=== PATIENT | male | born 1950 | race Caucasian/White ===

== ENCOUNTER 2021-05-12 08:19 | Day surgery (SDC) | payer MEDICARE, OTHER ==
[~2021-05-12] VITALS: Ht 172.7 cm; Wt 115.5 kg
[2021-05-12] VITALS (10 sets, daily range): BP systolic 104–154; BP diastolic 55–89
[2021-05-12] MEDS ORDERED: diphenhydrAMINE 25mg capsule PO PRN (08:55)
[2021-05-12] MEDS ORDERED: normal saline 1,000 ML IV SCH ×2 (08:55→13:25)
[2021-05-12] MEDS ORDERED: BACL10TA2 PO (09:23)
[2021-05-12] MEDS ORDERED: LISI40TA13 PO (09:23)
[2021-05-12] MEDS ORDERED: ALLO100T PO (09:23)
[2021-05-12] MEDS ORDERED: AMLO10TA13 PO (09:23)
[2021-05-12] MEDS ORDERED: ATOR40TA72 PO (09:23)
[2021-05-12] MEDS ORDERED: ROPI0.2540 PO (09:23)
[2021-05-12] MEDS ORDERED: METO50TA16 PO (09:23)
[2021-05-12] MEDS ORDERED: LACT1CAP57 PO (09:36)
[2021-05-12] MEDS ORDERED: MULT-1085 PO (09:36)
[2021-05-12] MEDS ORDERED: ASPI81TA30 PO (09:36)
[2021-05-12] MEDS ORDERED: IRON (09:36)
[2021-05-12] MEDS ORDERED: OMEG1CAP2 PO (09:36)
[2021-05-12] MEDS ORDERED: UBID10CA4 PO (09:36)
[2021-05-12] MEDS ORDERED: VITAMIN D3 (09:36)
[2021-05-12] MEDS ORDERED: VITA1TAB20 PO (09:36)
[2021-05-12 10:32] LABS: BASOPHILS % (AUTO) 0.6 % (0-1); EOSINOPHILS # (AUTO) 0.1 X10'3 (0-0.9); EOSINOPHILS % (AUTO) 1.5 % (0-6); HEMOGLOBIN 14.4 g/dl (14.0-17.9); LYMPHOCYTES # (AUTO) 1.5 X10'3 (1.1-4.8); LYMPHOCYTES % (AUTO) 19.1 % (21-51); MEAN CORPUSCULAR HEMOGLOBIN 32.8 PG (27.0-31.0); MEAN CORPUSCULAR HGB CONC 33.5 g/dL (33.0-36.5); MEAN CORPUSCULAR VOLUME 97.9 FL (78-98); MEAN PLATELET VOLUME 7.6 FL (7.4-10.4); MONOCYTES # (AUTO) 0.5 X10'3 (0-0.9); MONOCYTES % (AUTO) 6.9 % (2-12); NEUTROPHILS # (AUTO) 5.7 X10'3 (1.8-7.7); NEUTROPHILS % (AUTO) 71.9 % (42-75); PLATELET COUNT 237 X10'3 (140-440); RED BLOOD COUNT 4.39 X10'6 (4.70-6.10); RED CELL DISTRIBUTION WIDTH 14.7 % (11.5-14.5); WHITE BLOOD COUNT 7.9 X10'3 (4.5-11.0)
[2021-05-12] MEDS ORDERED: nitroGLYCERIN-Tridil 50MG/D5W 250 ML IV ONE (10:42)
[2021-05-12] MEDS ORDERED: iohexol 350MG/ML 100ml bottle IV ONE ×3 (10:43→12:37)
[2021-05-12] MEDS ORDERED: fentaNYL/PF 50MCG/1 ML 2ML syringe ONE (10:43)
[2021-05-12] MEDS ORDERED: iohexol 350 MG/ML 50ML vial IV ONE (10:43)
[2021-05-12] MEDS ORDERED: midazolam 1 mg/ML 2ml injection ONE ×2 (10:43→11:16)
[2021-05-12] MEDS ORDERED: LIDOcaine 1% (10mg/ml)w/preservative injection 20ml MDV ONE (10:43)
[2021-05-12] MEDS ORDERED: heparin 1,000unit/ml 10ml vial 10 ML ONE (10:43)
[2021-05-12 10:54] LABS: ALBUMIN 3.8 G/DL (3.4-5.0); ANION GAP 14 (8-16); BLOOD UREA NITROGEN 17 MG/DL (7-18); BUN/CREATININE RATIO 12.3 (5.4-32.0); CALCIUM 9.2 MG/DL (8.5-10.1); CHLORIDE 104 MMOL/L (99-107); CREATININE 1.38 MG/DL (0.60-1.10); GLUCOSE 119 MG/DL (70-104); MAGNESIUM 1.8 MG/DL (1.5-2.4); POTASSIUM 4.4 MMOL/L (3.5-5.1); SODIUM 141 MMOL/L (135-145); TOTAL CARBON DIOXIDE 22.7 MMOL/L (24-32); eGFR 51 ML/MIN
[2021-05-12] MEDS ORDERED: HYDROmorphone 1 mg/ml syringe ONE (11:27)
[2021-05-12] MEDS ORDERED: verapamil 2.5 mg/ml inj IV ONE (11:28)
[2021-05-12] MEDS ORDERED: proCHLORperazine 10 MG/2 ml inj IV PRN (13:25)
[2021-05-12] MEDS ORDERED: OXAZEpam 15mg capsule PO PRN (13:25)
[2021-05-12] MEDS ORDERED: HYDROcodone/acetaminophen 10/325mg tab PO PRN (13:25)
[2021-05-12] MEDS ORDERED: HYDROcodone/acetaminophen 5mg/325mg tablet PO PRN (13:25)
[2021-05-12] MEDS ORDERED: ondansetron/PF 4mg/2ml inj IV PRN (13:25)
== END 2021-05-12 17:15 | disposition home or self-care (01) ==
LOC: SSTAY O 08:19
PROVIDERS: ATTEND Internal Medicine Cardiovascular Disease
DX: I35.0 Nonrheumatic aortic (valve) stenosis (principal); I25.810 Atherosclerosis of coronary artery bypass graft(s) without angina pectoris; I44.7 Left bundle-branch block, unspecified; I48.0 Paroxysmal atrial fibrillation; I10 Essential (primary) hypertension; E78.5 Hyperlipidemia, unspecified; E21.3 Hyperparathyroidism, unspecified; G25.81 Restless legs syndrome; E66.9 Obesity, unspecified; Z68.39 Body mass index [BMI] 39.0-39.9, adult; Z90.49 Acquired absence of other specified parts of digestive tract; Z79.899 Other long term (current) drug therapy; Z86.73 Personal history of transient ischemic attack (TIA), and cerebral infarction without residual deficits; Z79.82 Long term (current) use of aspirin; Z87.442 Personal history of urinary calculi; Z93.2 Ileostomy status; Z93.3 Colostomy status; Z98.49 Cataract extraction status, unspecified eye; Z88.0 Allergy status to penicillin; Z88.8 Allergy status to other drugs, medicaments and biological substances; Z82.49 Family history of ischemic heart disease and other diseases of the circulatory system
CPT/HCPCS: 36415; 80048; 83735; 85025; 85610; 93005; 93455; 99152; 99153; C1769; C1894; J1170; J1644; J2001; J2250; J3010; J7030; Q0163; Q9967; A4620; A5120; A6258; C1751; J3490

== ENCOUNTER 2021-06-24 10:56 | Outpatient (CLI) | payer MEDICARE, OTHER ==
[~2021-06-24 10:56] MED LIST: ALLO100T PO; AMLO10TA13 PO; ASPI81TA30 PO; ATOR40TA72 PO; BACL10TA2 PO; IRON; LACT1CAP57 PO; LISI40TA13 PO; METO50TA16 PO; MULT-1085 PO; OMEG1CAP2 PO; ROPI0.2540 PO; UBID10CA4 PO; VITA1TAB20 PO; VITAMIN D3
[2021-06-24] MEDS ORDERED: IODIXANOL 320 MG/ML INFUS..BTL 50ML IV ONE (11:46)
[2021-06-24] MEDS ORDERED: IODIXANOL 320 MG/ML INFUS..BTL 100ML IV ONE (11:46)
[2021-06-24 11:51] LABS: BASOPHILS # (AUTO) 0.1 X10'3 (0-0.2); BASOPHILS % (AUTO) 0.8 % (0-1); EOSINOPHILS # (AUTO) 0.6 X10'3 (0-0.9); EOSINOPHILS % (AUTO) 6.8 % (0-6); HEMATOCRIT 43.6 % (42.0-52.0); HEMOGLOBIN 14.7 g/dl (14.0-17.9); LYMPHOCYTES # (AUTO) 2.4 X10'3 (1.1-4.8); LYMPHOCYTES % (AUTO) 29.1 % (21-51); MEAN CORPUSCULAR HEMOGLOBIN 32.6 PG (27.0-31.0); MEAN CORPUSCULAR HGB CONC 33.8 g/dL (33.0-36.5); MEAN CORPUSCULAR VOLUME 96.6 FL (78-98); MEAN PLATELET VOLUME 7.6 FL (7.4-10.4); MONOCYTES # (AUTO) 0.5 X10'3 (0-0.9); MONOCYTES % (AUTO) 6.2 % (2-12); NEUTROPHILS # (AUTO) 4.7 X10'3 (1.8-7.7); NEUTROPHILS % (AUTO) 57.1 % (42-75); PLATELET COUNT 238 X10'3 (140-440); RED BLOOD COUNT 4.52 X10'6 (4.70-6.10); RED CELL DISTRIBUTION WIDTH 14.7 % (11.5-14.5); WHITE BLOOD COUNT 8.2 X10'3 (4.5-11.0)
[2021-06-24 12:03] LABS: PARTIAL THROMBOPLASTIN TIME 27 SECONDS (22-32)
[2021-06-24 12:07] LABS: ALANINE AMINOTRANSFERASE 29 U/L (12-78); ALBUMIN 3.5 G/DL (3.4-5.0); ALBUMIN/GLOBULIN RATIO 0.8 (1.1-1.5); ALKALINE PHOSPHATASE 67 IU/L (46-116); ANION GAP 13 (8-16); ASPARTATE AMINO TRANSFERASE 24 U/L (10-37); BILIRUBIN,TOTAL 1.3 MG/DL (0.1-1.0); BLOOD UREA NITROGEN 13 MG/DL (7-18); BUN/CREATININE RATIO 10.6 (5.4-32.0); CALCIUM 8.7 MG/DL (8.5-10.1); CHLORIDE 107 MMOL/L (99-107); CREATININE 1.23 MG/DL (0.60-1.10); GLUCOSE 123 MG/DL (70-104); POTASSIUM 4.4 MMOL/L (3.5-5.1); SODIUM 142 MMOL/L (135-145); TOTAL CARBON DIOXIDE 22.5 MMOL/L (24-32); eGFR 58 ML/MIN
== END 2021-06-24 23:59 | disposition home or self-care (01) ==
LOC: RAD 10:56
PROVIDERS: ATTEND Internal Medicine Cardiovascular Disease
DX: I71.4 Abdominal aortic aneurysm, without rupture (principal); K43.9 Ventral hernia without obstruction or gangrene; K43.5 Parastomal hernia without obstruction or gangrene; N28.1 Cyst of kidney, acquired; I70.0 Atherosclerosis of aorta; I65.23 Occlusion and stenosis of bilateral carotid arteries; I08.0 Rheumatic disorders of both mitral and aortic valves; Z20.822 Contact with and (suspected) exposure to COVID-19
CPT/HCPCS: 36415; 71046; 71275; 74174; 76937; 80053; 85025; 85610; 85730; 93308; 93880; Q9967; U0003; U0005

== ENCOUNTER → 2021-06-27 | Outpatient (CLI) | payer MEDICARE, OTHER | END | disposition home or self-care (01) | LOC: RT 12:29 | PROVIDERS: ATTEND Internal Medicine Cardiovascular Disease | DX: I35.0 Nonrheumatic aortic (valve) stenosis (principal); R06.02 Shortness of breath; I65.29 Occlusion and stenosis of unspecified carotid artery | CPT/HCPCS: 94010; 94727; 94729 ==

== ENCOUNTER 2021-08-28 09:30 | Inpatient (IN) | payer MEDICARE, OTHER ==
[~2021-08-28] VITALS: Ht 172.7 cm; Wt 107.3 kg
[~2021-08-28 09:30] MED LIST changes: -IRON; -LACT1CAP57 PO; -MULT-1085 PO; -OMEG1CAP2 PO; -UBID10CA4 PO; -VITAMIN D3
[2021-09-12 12:14] LABS: CLARITY,URINE CLEAR (Clear); COLOR,URINE YELLOW (Yellow); UA COLLECTION TYPE CLN CATCH MIDSTREAM
[2021-09-12 12:17] LABS: GLUCOSE, URINE NEGATIVE (Neg); KETONES,URINE NEGATIVE (Neg); LEUKOCYTE ESTERASE ,URINE NEGATIVE (Neg); NITRITES, URINE NEGATIVE (Neg); OCCULT BLOOD,URINE NEGATIVE (Neg); PROTEIN,URINE NEGATIVE (Neg); UROBILINOGEN,URINE 0.2 E.U/dL (0.2-1.0)
[2021-09-12 12:21] LABS: BASOPHILS % (AUTO) 0.6 % (0-1); EOSINOPHILS # (AUTO) 0.2 X10'3 (0-0.9); LYMPHOCYTES # (AUTO) 1.3 X10'3 (1.1-4.8); LYMPHOCYTES % (AUTO) 20.8 % (21-51); MEAN CORPUSCULAR HGB CONC 33.9 g/dL (33.0-36.5); MEAN CORPUSCULAR VOLUME 97.3 FL (78-98); MEAN PLATELET VOLUME 7.7 FL (7.4-10.4); MONOCYTES # (AUTO) 0.7 X10'3 (0-0.9); MONOCYTES % (AUTO) 10.7 % (2-12); NEUTROPHILS # (AUTO) 4.2 X10'3 (1.8-7.7); NEUTROPHILS % (AUTO) 64.9 % (42-75); PRE OP HEMOGLOBIN 14.9 g/dL (14.0-17.9); PRE OP PLATELET COUNT 238 X10'3 (140-440); RED BLOOD COUNT 4.52 X10'6 (4.70-6.10); RED CELL DISTRIBUTION WIDTH 15.7 % (11.5-14.5)
[2021-09-12 12:24] LABS: PRE OP INR 1.1 INR
[2021-09-12 12:27] LABS: ALBUMIN 3.6 G/DL (3.4-5.0); ALBUMIN/GLOBULIN RATIO 0.7 (1.1-1.5); ALKALINE PHOSPHATASE 92 IU/L (46-116); BLOOD UREA NITROGEN 16 MG/DL (7-18); BUN/CREATININE RATIO 11.1 (5.4-32.0); CALCIUM 9.3 MG/DL (8.5-10.1); CHLORIDE 101 MMOL/L (99-107); CREATININE 1.44 MG/DL (0.60-1.10); PRE OP ALT 43 U/L (30-65); PRE OP ANION GAP 14 (8-16); PRE OP AST 40 U/L (10-37); PRE OP BILIRUB, TOTAL 1.7 MG/DL (0.0-1.0); PRE OP GLUCOSE 135 MG/DL (70-104); PRE OP POTASSIUM 4.2 MMOL/L (3.4-5.1); PRE OP SODIUM 139 MMOL/L (135-145); TOTAL PROTEIN 8.7 G/DL (6.4-8.2); eGFR 48 ML/MIN
[2021-09-12] MEDS ORDERED: HYDR7GEL (15:18)
[2021-09-18] VITALS (25 sets, daily range): BP systolic 126–171; BP diastolic 55–101
[2021-09-18] MEDS ORDERED: ringers solution, lacted 1,000 ML IV SCH (05:00)
[2021-09-18] MEDS ORDERED: VANCOMYCIN INJ 1000 MG in NORMAL SALINE 250ml IV.SOLN IV ONE (05:30)
[2021-09-18] MEDS ORDERED: DOCUMENT DATE & TIME OF BETA-BLOCKER PO ONE (05:30)
[2021-09-18] MEDS ORDERED: famotidine 20mg tablet PO ONE (05:30)
[2021-09-18] MEDS ORDERED: ondansetron/PF 4mg/2ml inj IV PRN ×2 (05:30→09:10)
[2021-09-18] MEDS ORDERED: aspirin 325mg tablet PO ONE (05:30)
[2021-09-18] MEDS ORDERED: phenylephrine inj 50 MG in normal saline 250ml IV soln 245 ML IV PRN (06:15)
[2021-09-18] MEDS ORDERED: nitroPRUSSIDE 0.2mg/mL in NS 100 ML IV PRN (06:15)
[2021-09-18] MEDS ORDERED: LIDOcaine 1% (10mg/ml)w/preservative injection 20ml MDV ONE (06:31)
[2021-09-18] MEDS ORDERED: iohexol 350 MG/ML 50ML vial IV ONE (06:32)
[2021-09-18] MEDS ORDERED: heparin 1,000 UNITS/NS 500ml 1,500 ML ONE (06:32)
[2021-09-18] MEDS ORDERED: iohexol 350MG/ML 100ml bottle IV ONE (06:32)
[2021-09-18] MEDS ORDERED: protamine sulfate 10mg/ml inj. ONE (06:36)
[2021-09-18] MEDS ORDERED: metoprolol tartrate 50mg tablet ONE (06:59)
[2021-09-18] MEDS ORDERED: fentaNYL/PF 50MCG/1 ML 2ML syringe ONE (07:12)
[2021-09-18] MEDS ORDERED: ondansetron/PF 4mg/2ml inj ONE (08:40)
[2021-09-18] MEDS ORDERED: dexamethasone sod phosphate 4mg/ml inj. ONE (08:40)
[2021-09-18] MEDS ORDERED: propofol inj 20 ML IV ONE (08:40)
[2021-09-18] MEDS ORDERED: epiNEPHrine 1 mg/ml inj ONE (08:40)
[2021-09-18] MEDS ORDERED: heparin 1,000unit/ml 10ml vial 20 ML ONE (08:40)
[2021-09-18] MEDS ORDERED: phenylephrine 10mg/ml inj. ONE (08:40)
[2021-09-18] MEDS ORDERED: LIDOcaine 2% (20mg/ml) 5ml vial ONE (08:40)
[2021-09-18] MEDS ORDERED: rocuronium 10mg/ml inj IV ONE (08:40)
[2021-09-18] MEDS ORDERED: sugammadex 200mg/2ml injection IV ONE (08:41)
--- NOTE | 2021-09-18 09:03 | NUR ---
Received from OR via BED, accompanied by Anesthesiologist DR. CARR and report given by Anesthesiolgist AND OR NURSE. PT ARRIVED DROWSY BUT ABLE TO RESPOND TO VERBAL STIMULI ON 10 L OF 02 VIA MASK. PT HAS 18 G IV TO LEFT HAND AND ART LINE TO LEFT WRIST. PT HAS DRESSING TO R GROIN THAT IS C/D/I, NO SWELLING OR BLEEDING NOTED. ARTERIAL PRESSURE DEVICE INTACT TO RIGHT WRIST. WILL DEFLATE ORDERS STATES. NEURO ASSESSMENT COMPLETED. PUSH, PULL, ACETYLENE TORCH BURNER, SMILE ALL WITHIN NORMAL LIMITS. BILATERAL PEDAL PULSES STRONG. VSS. WILL CONTINUE TO ASSESS.
[2021-09-18] MEDS ORDERED: magnesium 4gm in 100ml NS 100 ML IV PRN (09:10)
[2021-09-18] MEDS ORDERED: ALPRAZolam 0.25mg tablet PO PRN (09:10)
[2021-09-18] MEDS ORDERED: potassium CL 10mEq/100ml bag 100 ML IV PRN (09:10)
[2021-09-18] MEDS ORDERED: diphenhydrAMINE 25mg capsule PO PRN (09:10)
[2021-09-18] MEDS ORDERED: acetaminophen 325mg tablet PO PRN (09:10)
[2021-09-18] MEDS ORDERED: potassium Cl 20 mEq SR tablet PO PRN (09:10)
[2021-09-18] MEDS ORDERED: potassium Cl 40MEQ/1/2NS 520ml 520 ML IV PRN (09:10)
[2021-09-18] MEDS ORDERED: pantoprazole 40mg Tablet.DR PO PRN (09:10)
[2021-09-18] MEDS ORDERED: labetalol 20mg/4ml (5mg/ml) syringe IV PRN (09:10)
[2021-09-18] MEDS ORDERED: docusate sod 100mg capsule PO PRN (09:10)
[2021-09-18] MEDS ORDERED: magnesium 2GM in 50ml NS 50 ML IV PRN (09:10)
[2021-09-18] MEDS: normal saline 1000ml 1,000 ML IV SCH ×2 (09:46→19:10)
--- NOTE | 2021-09-18 09:50 | NUR ---
REASSESSED DRESSING TO R GROIN THAT IS C/D/I, NO SWELLING OR BLEEDING NOTED. ARTERIAL PRESSURE DEVICE INTACT TO RIGHT WRIST. NEURO ASSESSMENT COMPLETED. PUSH, PULL, SPEECH PATHOLOGY SUPERVISOR, SMILE ALL WITHIN NORMAL LIMITS. BILATERAL PEDAL PULSES STRONG. VSS. Addendum: 09/18/21 at 1053 by Kate Greer RN Amended: Links added.
--- NOTE | 2021-09-18 10:43 | NUR ---
Report called to receiving nurse ANGELICA MARISCAL IN PCU. Transferred via BED WITH Belongings, DENTURES IN BAG. Special Issues communicated to receiving nurseIain FERNANDES. RN AT BEDSIDE TO ASSUME CARE OF PT. BED IN LOW POSITION, 2 RAILS UP, CALL LIGHT IN REACH. Addendum: 09/18/21 at 1058 by Kate Greer RN Amended: Links added.
[2021-09-18] MEDS: hydrALAZINE 20mg/ml inj. IV PRN ×2 (13:43→23:43)
[2021-09-18] MEDS: sod chloride 0.9% 10ml flush syringe IV SCH (16:00)
[2021-09-18] MEDS: ceFAZolin 1GM/D5W- ADD-VANTAGE 50 ML IV SCH ×2 (16:53→23:43)
[2021-09-18] MEDS: HYDROcodone/acetaminophen 5mg/325mg tablet PO PRN (17:09)
--- NOTE | 2021-09-18 18:00 | NUR ---
Patient in room PCU 3026. I have received report from FLAKITO MARISCAL and had the opportunity to ask questions and assume patient care.
--- NOTE | 2021-09-18 18:34 | NUR ---
Orientee documentation: I have reviewed and agree with all interventions, assessments performed and documented by LOIDA Najera.
--- NOTE | 2021-09-18 18:35 | NUR ---
Problems reprioritized. Patient report given, questions answered & plan of care reviewed with LOIDA Reis.
[2021-09-18] MEDS: vancomycin/NS 1 GM ADD-VANTAGE 250 ML IV SCH (20:19)
[2021-09-18] MEDS: metoprolol tartrate 50mg tablet PO SCH (20:20)
[2021-09-18] MEDS ORDERED: baclofen 10mg tablet PO SCH (21:00)
[2021-09-18] MEDS ORDERED: ROPINIRole 0.25mg tablet PO SCH (21:00)
[2021-09-18] MEDS ORDERED: atorvastatin 20mg tablet PO SCH (21:00)
[2021-09-19 02:00] VITALS: BP 158/72
[2021-09-19] MEDS: normal saline 1000ml 1,000 ML IV SCH (05:10)
[2021-09-19 06:00] VITALS: BP 160/102
--- NOTE | 2021-09-19 06:06 | NUR ---
Problems reprioritized. Patient report given, questions answered & plan of care reviewed with TOBY MARISCAL.
[2021-09-19 06:12] LABS: BASOPHILS # (AUTO) 0.1 X10'3 (0-0.2); BASOPHILS % (AUTO) 0.5 % (0-1); EOSINOPHILS % (AUTO) 0 % (0-6); HEMATOCRIT 38.3 % (42.0-52.0); HEMOGLOBIN 13.1 g/dl (14.0-17.9); LYMPHOCYTES # (AUTO) 1.5 X10'3 (1.1-4.8); LYMPHOCYTES % (AUTO) 13.5 % (21-51); MEAN CORPUSCULAR HEMOGLOBIN 33.3 PG (27.0-31.0); MEAN CORPUSCULAR HGB CONC 34.3 g/dL (33.0-36.5); MEAN CORPUSCULAR VOLUME 97.2 FL (78-98); MEAN PLATELET VOLUME 7.7 FL (7.4-10.4); MONOCYTES # (AUTO) 0.7 X10'3 (0-0.9); MONOCYTES % (AUTO) 6.6 % (2-12); NEUTROPHILS # (AUTO) 8.7 X10'3 (1.8-7.7); NEUTROPHILS % (AUTO) 79.4 % (42-75); PLATELET COUNT 234 X10'3 (140-440); RED BLOOD COUNT 3.95 X10'6 (4.70-6.10); RED CELL DISTRIBUTION WIDTH 15.6 % (11.5-14.5)
[2021-09-19 06:49] LABS: ALANINE AMINOTRANSFERASE 26 U/L (12-78); ALBUMIN/GLOBULIN RATIO 0.7 (1.1-1.5); ALKALINE PHOSPHATASE 78 IU/L (46-116); ANION GAP 15 (8-16); ASPARTATE AMINO TRANSFERASE 26 U/L (10-37); BILIRUBIN,TOTAL 0.9 MG/DL (0.1-1.0); BLOOD UREA NITROGEN 15 MG/DL (7-18); BUN/CREATININE RATIO 12.8 (5.4-32.0); CALCIUM 8.7 MG/DL (8.5-10.1); CHLORIDE 105 MMOL/L (99-107); CREATININE 1.17 MG/DL (0.60-1.10); GLUCOSE 129 MG/DL (70-104); MAGNESIUM 1.7 MG/DL (1.5-2.4); POTASSIUM 4.2 MMOL/L (3.5-5.1); SODIUM 142 MMOL/L (135-145); TOTAL PROTEIN 7.5 G/DL (6.4-8.2); eGFR 61 ML/MIN
[2021-09-19] MEDS: HYDROcodone/acetaminophen 5mg/325mg tablet PO PRN (07:18)
[2021-09-19] MEDS: metoprolol tartrate 50mg tablet PO SCH (07:21)
[2021-09-19] MEDS: sod chloride 0.9% 10ml flush syringe IV SCH ×2 (07:22)
[2021-09-19] MEDS: ceFAZolin 1GM/D5W- ADD-VANTAGE 50 ML IV SCH (07:22)
[2021-09-19] MEDS ORDERED: aspirin 81mg, enteric-coated 1 TAB TABLET.DR PO SCH (08:00)
[2021-09-19] MEDS ORDERED: vitamin B comp w/Vit. C tab 1 TAB TABLET PO SCH (08:00)
[2021-09-19] MEDS ORDERED: baclofen 10mg tablet PO SCH (08:00)
[2021-09-19] MEDS ORDERED: amLODIPine 5mg tablet PO SCH (08:00)
[2021-09-19] MEDS ORDERED: allopurinol 100mg tablet PO SCH (08:00)
[2021-09-19] MEDS ORDERED: lisinopril 20mg tablet PO SCH (08:00)
[2021-09-19] MEDS: vancomycin/NS 1 GM ADD-VANTAGE 250 ML IV SCH (08:46)
[2021-09-19 11:00] VITALS: BP 134/70
--- NOTE | 2021-09-19 15:13 | NUR ---
Pt stable for D/C Pt stable for D/C per MD orders. All d/c ppwk reviewed with pt and pt family. Pt verbalized understanding. NO new RX. All personal belongings were sent with patient. Pt was wheeled down by nursing staff to private vehicle where was waiting. No questions, comments or concerns at this time. Pt and family has verbalized understanding of all d/c instructions including all follow up appt's.
== END 2021-09-19 14:35 | disposition home or self-care (01) | DRG 266 ==
LOC: EDSTATUS 10:00 → PAS IN 09-18 05:19 → PCU 3S 09-18 11:01
PROVIDERS: ADMIT Internal Medicine Cardiovascular Disease; ATTEND Internal Medicine Cardiovascular Disease
PROC: B41F1ZZ Fluoroscopy of Right Lower Extremity Arteries using Low Osmolar Contrast (ICD-10-PCS; 2021-09-18)
PROC: B4101ZZ Fluoroscopy of Abdominal Aorta using Low Osmolar Contrast (ICD-10-PCS; 2021-09-18)
PROC: 02RF38Z Replacement of Aortic Valve with Zooplastic Tissue, Percutaneous Approach (ICD-10-PCS; principal; 2021-09-18 07:10)
DX: I35.0 Nonrheumatic aortic (valve) stenosis (principal); I50.33 Acute on chronic diastolic (congestive) heart failure; I25.810 Atherosclerosis of coronary artery bypass graft(s) without angina pectoris; K50.90 Crohn's disease, unspecified, without complications; Z00.6 Encounter for examination for normal comparison and control in clinical research program; E78.00 Pure hypercholesterolemia, unspecified; E83.52 Hypercalcemia; I11.0 Hypertensive heart disease with heart failure; I71.4 Abdominal aortic aneurysm, without rupture; E66.9 Obesity, unspecified; E78.5 Hyperlipidemia, unspecified; G25.81 Restless legs syndrome; I25.10 Atherosclerotic heart disease of native coronary artery without angina pectoris; Z86.73 Personal history of transient ischemic attack (TIA), and cerebral infarction without residual deficits; Z87.442 Personal history of urinary calculi; Z93.3 Colostomy status; Z68.36 Body mass index [BMI] 36.0-36.9, adult
CPT/HCPCS: 33361; 36415; 71045; 71046; 76376; 80053; 81003; 82948; 83735; 83880; 85025; 85347; 85610; 85730; 86885; 86900; 86901; 86920; 87081; 93005; 93308; 93355; A4618; A6258; A6449; C1756; C1760; C1769; C1894; C9399; G0378; J0171; J0360; J0690; J1100; J1644; J2001; J2370; J2405; J2704; J2720; J3010; J3370; J7030; J7040; J7120; Q9967; U0003; U0005

== ENCOUNTER 2021-11-09 18:59 | Inpatient (IN) | payer MEDICARE, OTHER ==
[~2021-11-09] VITALS: Ht 172.7 cm; Wt 110.0 kg
[~2021-11-09 18:59] MED LIST changes: +HYDR7GEL
--- NOTE | 2021-11-09 19:45 | NUR ---
Placed in room 14 from [facility].
[2021-11-09 20:05] LABS: BASOPHILS # (AUTO) 0.1 X10'3 (0-0.2); BASOPHILS % (AUTO) 0.7 % (0-1); EOSINOPHILS # (AUTO) 0.3 X10'3 (0-0.9); EOSINOPHILS % (AUTO) 3.6 % (0-6); HEMATOCRIT 41.5 % (42.0-52.0); HEMOGLOBIN 14.1 g/dl (14.0-17.9); LYMPHOCYTES # (AUTO) 1.6 X10'3 (1.1-4.8); LYMPHOCYTES % (AUTO) 21.9 % (21-51); MEAN CORPUSCULAR HEMOGLOBIN 32.4 PG (27.0-31.0); MEAN CORPUSCULAR HGB CONC 33.9 g/dL (33.0-36.5); MEAN CORPUSCULAR VOLUME 95.5 FL (78-98); MEAN PLATELET VOLUME 7.3 FL (7.4-10.4); MONOCYTES # (AUTO) 0.5 X10'3 (0-0.9); MONOCYTES % (AUTO) 6.9 % (2-12); NEUTROPHILS # (AUTO) 4.9 X10'3 (1.8-7.7); NEUTROPHILS % (AUTO) 66.9 % (42-75); PLATELET COUNT 280 X10'3 (140-440); RED BLOOD COUNT 4.35 X10'6 (4.70-6.10); RED CELL DISTRIBUTION WIDTH 15.1 % (11.5-14.5); WHITE BLOOD COUNT 7.3 X10'3 (4.5-11.0)
[2021-11-09 20:28] LABS: APTT 27 SECONDS (22-32)
[2021-11-09 20:30] LABS: ALANINE AMINOTRANSFERASE 27 U/L (12-78); ALBUMIN 3.5 G/DL (3.4-5.0); ALBUMIN/GLOBULIN RATIO 0.7 (1.1-1.5); ALKALINE PHOSPHATASE 114 IU/L (46-116); ANION GAP 13 (8-16); ASPARTATE AMINO TRANSFERASE 27 U/L (10-37); BILIRUBIN,TOTAL 0.9 MG/DL (0.1-1.0); BLOOD UREA NITROGEN 14 MG/DL (7-18); CALCIUM 9.5 MG/DL (8.5-10.1); CHLORIDE 103 MMOL/L (99-107); CREATININE 1.27 MG/DL (0.60-1.10); GLUCOSE 129 MG/DL (70-104); SODIUM 141 MMOL/L (135-145); TOTAL CARBON DIOXIDE 24.8 MMOL/L (24-32); TOTAL PROTEIN 8.5 G/DL (6.4-8.2); eGFR 56 ML/MIN
[2021-11-09] MEDS ORDERED: temazepam 15mg capsule PO PRN (21:00)
[2021-11-09] MEDS ORDERED: clopidogrel 300mg tablet PO ONE (21:30)
[2021-11-09] MEDS ORDERED: aspirin 325mg tablet PO ONE (21:30)
--- NOTE | 2021-11-09 21:30 | NUR ---
Teleneuro visit completed.
[2021-11-09] MEDS ORDERED: iohexol 350MG/ML 100ml bottle IV ONE (21:33)
[2021-11-09] MEDS ORDERED: clopidogrel 75mg tablet PO ONE (21:35)
[2021-11-09] MEDS ORDERED: ondansetron/PF 4mg/2ml inj IV PRN (23:30)
[2021-11-09] MEDS ORDERED: HYDROcodone/acetaminophen 5mg/325mg tablet PO PRN (23:30)
[2021-11-09] MEDS ORDERED: diphenhydrAMINE 50 mg/ml inj IV PRN (23:30)
[2021-11-09] MEDS ORDERED: diphenhydrAMINE 25mg capsule PO PRN (23:30)
[2021-11-09] MEDS ORDERED: magnesium hydroxide 30ml (MOM) UD suspension PO PRN (23:30)
[2021-11-09] MEDS ORDERED: morphine 2 MG/ML inj. syringe IV PRN (23:30)
[2021-11-09] MEDS ORDERED: acetaminophen 325mg tablet PO PRN ×2 (23:30)
[2021-11-09] MEDS ORDERED: bisacodyl 10mg suppository rectal RC PRN (23:30)
[2021-11-09] MEDS ORDERED: ondansetron 4mg rapidly disintigrating tab PO PRN (23:30)
[2021-11-09] MEDS ORDERED: acetaminophen 650mg rectal suppository RC PRN (23:30)
[2021-11-09] MEDS ORDERED: mag hydrox/Alum hydrox/simeth 30ml oral suspension PO PRN (23:30)
[2021-11-10] LABS: HEMOGLOBIN A1C 6.6 % (4.5-6.2)
[2021-11-10 00:09] LABS: MAGNESIUM 1.9 MG/DL (1.5-2.4); PHOSPHORUS 3.5 MG/DL (2.3-4.5)
[2021-11-10] MEDS ORDERED: ROPINIRole 0.25mg tablet PO SCH (00:55)
[2021-11-10] MEDS ORDERED: metoprolol tartrate 50mg tablet PO ONE (00:55)
[2021-11-10] MEDS ORDERED: ROPINIRole 0.25mg tablet PO ONE (00:55)
[2021-11-10] MEDS ORDERED: baclofen 10mg tablet PO PRN (02:00)
[2021-11-10] MEDS: hydrOXYzine 25 MG tablet PO SCH ×4 (02:24→20:33)
[2021-11-10] MEDS: normal saline 1000ml 1,000 ML IV SCH ×2 (02:25→09:45)
[2021-11-10] MEDS: DOXYCYCLINE 100MG CAPSULE PO SCH ×2 (07:38→20:33)
[2021-11-10] MEDS: pantoprazole 40mg Tablet.DR PO SCH (07:38)
[2021-11-10] MEDS: heparin, porcine 5000 units/ml vial SQ SCH ×2 (07:39→20:33)
[2021-11-10] MEDS: docusate sod 100mg capsule PO SCH ×2 (07:39→20:00)
[2021-11-10] MEDS: clopidogrel 75mg tablet PO SCH (07:39)
[2021-11-10] MEDS ORDERED: fluticasone nasal spray 16GM bottle NS SCH (08:00)
[2021-11-10 08:35] LABS: BASOPHILS % (AUTO) 0.7 % (0-1); EOSINOPHILS # (AUTO) 0.2 X10'3 (0-0.9); EOSINOPHILS % (AUTO) 3.4 % (0-6); HEMATOCRIT 41.5 % (42.0-52.0); HEMOGLOBIN 14.2 g/dl (14.0-17.9); LYMPHOCYTES # (AUTO) 1.5 X10'3 (1.1-4.8); LYMPHOCYTES % (AUTO) 20.9 % (21-51); MEAN CORPUSCULAR HEMOGLOBIN 32.4 PG (27.0-31.0); MEAN CORPUSCULAR HGB CONC 34.1 g/dL (33.0-36.5); MEAN PLATELET VOLUME 7.4 FL (7.4-10.4); MONOCYTES # (AUTO) 0.5 X10'3 (0-0.9); MONOCYTES % (AUTO) 7.1 % (2-12); NEUTROPHILS # (AUTO) 4.9 X10'3 (1.8-7.7); NEUTROPHILS % (AUTO) 67.9 % (42-75); PLATELET COUNT 253 X10'3 (140-440); RED BLOOD COUNT 4.37 X10'6 (4.70-6.10); RED CELL DISTRIBUTION WIDTH 15.2 % (11.5-14.5); WHITE BLOOD COUNT 7.2 X10'3 (4.5-11.0)
[2021-11-10 09:03] LABS: ALANINE AMINOTRANSFERASE 27 U/L (12-78); ALBUMIN 3.3 G/DL (3.4-5.0); ALBUMIN/GLOBULIN RATIO 0.7 (1.1-1.5); ALKALINE PHOSPHATASE 92 IU/L (46-116); ANION GAP 15 (8-16); ASPARTATE AMINO TRANSFERASE 32 U/L (10-37); BILIRUBIN,TOTAL 1.3 MG/DL (0.1-1.0); BLOOD UREA NITROGEN 11 MG/DL (7-18); BUN/CREATININE RATIO 9.2 (5.4-32.0); CHLORIDE 106 MMOL/L (99-107); CHOL/HDL RATIO 3.2 (0.00-4.99); CHOLESTEROL 92 MG/DL (0-200); GLUCOSE 118 MG/DL (70-104); HDL CHOLESTEROL 29 MG/DL (35-60); LDL CHOLESTEROL 50 MG/DL (50-100); POTASSIUM 3.8 MMOL/L (3.5-5.1); SODIUM 143 MMOL/L (135-145); TOTAL CARBON DIOXIDE 22.2 MMOL/L (24-32); TOTAL PROTEIN 8.3 G/DL (6.4-8.2); TRIGLYCERIDES 146 MG/DL (20-135); eGFR 59 ML/MIN
[2021-11-10 12:00] VITALS: BP 131/69
[2021-11-10 15:00] VITALS: BP 146/83
[2021-11-10 18:00] VITALS: BP 147/75
[2021-11-10] MEDS: lactobacillus rhamnosus 10,000 MMU CELLS/CAPSULE PO SCH (20:33)
[2021-11-10] MEDS ORDERED: baclofen 10mg tablet PO ONE (21:40)
[2021-11-10 22:00] VITALS: BP 105/75
[2021-11-11] MEDS: normal saline 1000ml 1,000 ML IV SCH (01:00)
[2021-11-11 02:00] VITALS: BP 130/79
[2021-11-11] MEDS: hydrOXYzine 25 MG tablet PO SCH ×2 (02:00→08:11)
[2021-11-11 06:00] VITALS: BP 143/77
[2021-11-11 07:51] LABS: BASOPHILS # (AUTO) 0.1 X10'3 (0-0.2); BASOPHILS % (AUTO) 0.8 % (0-1); EOSINOPHILS # (AUTO) 0.4 X10'3 (0-0.9); EOSINOPHILS % (AUTO) 5.5 % (0-6); HEMOGLOBIN 13.9 g/dl (14.0-17.9); LYMPHOCYTES # (AUTO) 2.2 X10'3 (1.1-4.8); LYMPHOCYTES % (AUTO) 29.7 % (21-51); MEAN CORPUSCULAR HEMOGLOBIN 32.3 PG (27.0-31.0); MEAN CORPUSCULAR HGB CONC 33.9 g/dL (33.0-36.5); MEAN CORPUSCULAR VOLUME 95.4 FL (78-98); MEAN PLATELET VOLUME 7.4 FL (7.4-10.4); MONOCYTES # (AUTO) 0.5 X10'3 (0-0.9); MONOCYTES % (AUTO) 7.2 % (2-12); NEUTROPHILS # (AUTO) 4.3 X10'3 (1.8-7.7); NEUTROPHILS % (AUTO) 56.8 % (42-75); PLATELET COUNT 255 X10'3 (140-440); RED CELL DISTRIBUTION WIDTH 15.2 % (11.5-14.5); WHITE BLOOD COUNT 7.6 X10'3 (4.5-11.0)
[2021-11-11] MEDS: DOXYCYCLINE 100MG CAPSULE PO SCH (08:11)
[2021-11-11] MEDS: clopidogrel 75mg tablet PO SCH (08:11)
[2021-11-11] MEDS: heparin, porcine 5000 units/ml vial SQ SCH (08:11)
[2021-11-11] MEDS: pantoprazole 40mg Tablet.DR PO SCH (08:11)
[2021-11-11] MEDS: docusate sod 100mg capsule PO SCH (08:11)
[2021-11-11] MEDS: lactobacillus rhamnosus 10,000 MMU CELLS/CAPSULE PO SCH (08:11)
[2021-11-11 08:21] LABS: ALANINE AMINOTRANSFERASE 24 U/L (12-78); ALBUMIN 3.1 G/DL (3.4-5.0); ALBUMIN/GLOBULIN RATIO 0.6 (1.1-1.5); ALKALINE PHOSPHATASE 82 IU/L (46-116); ANION GAP 15 (8-16); ASPARTATE AMINO TRANSFERASE 22 U/L (10-37); BILIRUBIN,TOTAL 1.4 MG/DL (0.1-1.0); BLOOD UREA NITROGEN 17 MG/DL (7-18); BUN/CREATININE RATIO 12.2 (5.4-32.0); CHLORIDE 105 MMOL/L (99-107); CREATININE 1.39 MG/DL (0.60-1.10); GLUCOSE 104 MG/DL (70-104); POTASSIUM 4.1 MMOL/L (3.5-5.1); SODIUM 142 MMOL/L (135-145); TOTAL CARBON DIOXIDE 22.2 MMOL/L (24-32); eGFR 50 ML/MIN
[2021-11-11] MEDS ORDERED: CLOP75TA15 PO (10:04)
[2021-11-11] MEDS ORDERED: baclofen 10mg tablet PO SCH (21:00)
== END 2021-11-11 11:28 | disposition home or self-care (01) | DRG 69 ==
LOC: ER 19:00 → ED HOLD 23:33 → PCU 3S 11-10 11:40
PROVIDERS: ADMIT Family Medicine; ATTEND Internal Medicine
PROC: B3251ZZ Computerized Tomography (CT Scan) of Bilateral Common Carotid Arteries using Low Osmolar Contrast (ICD-10-PCS; principal; 2021-11-09)
PROC: B32G1ZZ Computerized Tomography (CT Scan) of Bilateral Vertebral Arteries using Low Osmolar Contrast (ICD-10-PCS; 2021-11-09)
PROC: B32R1ZZ Computerized Tomography (CT Scan) of Intracranial Arteries using Low Osmolar Contrast (ICD-10-PCS; 2021-11-09)
PROC: B3281ZZ Computerized Tomography (CT Scan) of Bilateral Internal Carotid Arteries using Low Osmolar Contrast (ICD-10-PCS; 2021-11-09)
DX: G45.9 Transient cerebral ischemic attack, unspecified (principal); N17.9 Acute kidney failure, unspecified; I50.32 Chronic diastolic (congestive) heart failure; I13.0 Hypertensive heart and chronic kidney disease with heart failure and stage 1 through stage 4 chronic kidney disease, or unspecified chronic kidney disease; K50.90 Crohn's disease, unspecified, without complications; G81.91 Hemiplegia, unspecified affecting right dominant side; I25.10 Atherosclerotic heart disease of native coronary artery without angina pectoris; J44.9 Chronic obstructive pulmonary disease, unspecified; E78.5 Hyperlipidemia, unspecified; G25.81 Restless legs syndrome; K76.0 Fatty (change of) liver, not elsewhere classified; M10.9 Gout, unspecified; G47.33 Obstructive sleep apnea (adult) (pediatric); N18.9 Chronic kidney disease, unspecified; J32.0 Chronic maxillary sinusitis; R73.03 Prediabetes; Z79.899 Other long term (current) drug therapy; Z86.73 Personal history of transient ischemic attack (TIA), and cerebral infarction without residual deficits; Z79.82 Long term (current) use of aspirin; Z90.49 Acquired absence of other specified parts of digestive tract; Z93.2 Ileostomy status; Z95.1 Presence of aortocoronary bypass graft; Z95.2 Presence of prosthetic heart valve; Z88.0 Allergy status to penicillin; Z88.8 Allergy status to other drugs, medicaments and biological substances
CPT/HCPCS: 36415; 70450; 70496; 70498; 70551; 71045; 80053; 80061; 82948; 83036; 83735; 83880; 84100; 84443; 84484; 85025; 85610; 85730; 93005; 93306; 99285; G0378; J1644; J2270; J7030; Q0177; Q9967

== ENCOUNTER 2022-03-11 09:47 | Inpatient (IN) | payer MEDICARE, OTHER ==
[~2022-03-11] VITALS: Ht 172.7 cm; Wt 107.0 kg
[~2022-03-11 09:47] MED LIST changes: +CLOP75TA15 PO
[2022-03-11] MEDS: DOPamine 400mg/D5W 250ml 250 ML IV SCH ×2 (10:35→18:26)
--- NOTE | 2022-03-11 10:46 | NUR ---
10:35: HR 18; ER provider called to bedside; dopamine bolus titrated by ER provider. 10:42: Dopamine on pump at 10 mcg/kg/min. 10:45: HR 110; dopamine decreased to 5 mcg/kg/min per ERP; titrate to keep HR 60-90.
--- NOTE | 2022-03-11 11:04 | NUR ---
Patient had transient episode of asystole followed by bradycardia; ER provider at bedside; patient paced; dopamine increased to 10 mcg/kg/min.
[2022-03-11] MEDS ORDERED: morphine 4 MG/ML inj SYRINge IV ONE (11:10)
[2022-03-11] MEDS ORDERED: aspirin 81mg tab.chew PO ONE (11:10)
[2022-03-11 11:20] LABS: BASOPHILS # (AUTO) 0.1 X10'3 (0-0.2); BASOPHILS % (AUTO) 0.4 % (0-1); EOSINOPHILS # (AUTO) 0.2 X10'3 (0-0.9); EOSINOPHILS % (AUTO) 1.2 % (0-6); HEMATOCRIT 41.6 % (42.0-52.0); HEMOGLOBIN 13.3 g/dl (14.0-17.9); LYMPHOCYTES # (AUTO) 2.8 X10'3 (1.1-4.8); MEAN CORPUSCULAR HEMOGLOBIN 31.9 PG (27.0-31.0); MEAN CORPUSCULAR HGB CONC 31.9 g/dL (33.0-36.5); MEAN CORPUSCULAR VOLUME 100.2 FL (78-98); MEAN PLATELET VOLUME 8.3 FL (7.4-10.4); MONOCYTES # (AUTO) 0.4 X10'3 (0-0.9); MONOCYTES % (AUTO) 2.7 % (2-12); NEUTROPHILS # (AUTO) 10.8 X10'3 (1.8-7.7); NEUTROPHILS % (AUTO) 75.7 % (42-75); PLATELET COUNT 282 X10'3 (140-440); RED BLOOD COUNT 4.15 X10'6 (4.70-6.10); RED CELL DISTRIBUTION WIDTH 16.1 % (11.5-14.5); WHITE BLOOD COUNT 14.2 X10'3 (4.5-11.0)
[2022-03-11] MEDS ORDERED: ondansetron/PF 4mg/2ml inj IV ONE (11:30)
[2022-03-11 11:32] LABS: ALANINE AMINOTRANSFERASE 39 U/L (12-78); ALBUMIN 3.4 G/DL (3.4-5.0); ALBUMIN/GLOBULIN RATIO 0.7 (1.1-1.5); ALKALINE PHOSPHATASE 90 IU/L (46-116); ANION GAP 20 (8-16); ASPARTATE AMINO TRANSFERASE 31 U/L (10-37); BILIRUBIN,TOTAL 0.7 MG/DL (0.1-1.0); BLOOD UREA NITROGEN 90 MG/DL (7-18); BUN/CREATININE RATIO 19.9 (5.4-32.0); CALCIUM 9.3 MG/DL (8.5-10.1); CHLORIDE 105 MMOL/L (99-107); CREATININE 4.53 MG/DL (0.60-1.10); GLUCOSE 312 MG/DL (70-104); MAGNESIUM 1.9 MG/DL (1.5-2.4); SODIUM 133 MMOL/L (135-145); TOTAL PROTEIN 8.3 G/DL (6.4-8.2); eGFR 13 ML/MIN
[2022-03-11 11:36] LABS: POTASSIUM 7.2 MMOL/L (3.5-5.1)
[2022-03-11 11:37] LABS: TOTAL CARBON DIOXIDE 7.8 MMOL/L (24-32)
[2022-03-11] MEDS ORDERED: insulin regular, human U-100 3ml vial - multi-dose IV ONE ×2 (11:40→17:20)
[2022-03-11] MEDS ORDERED: sodium bicarbonate (8.4%) 1 mEq/ml syringe IV ONE (11:40)
[2022-03-11] MEDS ORDERED: dextrose 50%-water 50ml dispensing syringe IV ONE (11:40)
[2022-03-11] MEDS ORDERED: calcium chloride 100 MG/1 ML inj IV ONE ×2 (11:40→19:00)
[2022-03-11] MEDS: sodium bicarbonate (8.4%) inj. 150 MEQ in dextrose 5%-water 1,000 ML IV SCH ×2 (11:51→20:25)
[2022-03-11 12:59] LABS: CLARITY,URINE CLOUDY (Clear); COLOR,URINE YELLOW (Yellow); GLUCOSE, URINE NEGATIVE (Neg); KETONES,URINE NEGATIVE (Neg); LEUKOCYTE ESTERASE ,URINE TRACE (Neg); NITRITES, URINE NEGATIVE (Neg); OCCULT BLOOD,URINE LARGE (Neg); PROTEIN,URINE 100 mg/dl (Neg); UROBILINOGEN,URINE 0.2 E.U/dL (0.2-1.0)
[2022-03-11 13:01] LABS: UA COLLECTION TYPE FOLEY CATH
[2022-03-11 13:07] LABS: SQUAMOUS EPITHELIAL CELL,UR MODERATE /LPF (FEW)
[2022-03-11 13:09] LABS: HYALINE CASTS >30 /LPF (NEGATIVE)
[2022-03-11 13:10] LABS: BACTERIA,URINE 1+ /HPF (Neg); RBC,URINE 50-100 /HPF (0-2); WBC,URINE 30-50 /HPF (0-4)
[2022-03-11] MEDS: normal saline 1000ml 1,000 ML IV SCH ×4 (14:23→18:14)
[2022-03-11] MEDS ORDERED: LIDOcaine 2% 10ml TOPICAL JELLY (Urojet) TP ONE (15:10)
[2022-03-11] MEDS ORDERED: magnesium hydroxide 30ml (MOM) UD suspension PO PRN ×2 (15:10)
[2022-03-11] MEDS ORDERED: morphine 2 MG/ML inj. syringe IV PRN ×2 (15:10)
[2022-03-11] MEDS ORDERED: POTASSIUM BICARB 20meq eff tab 20 MEQ TABLET.EFF PO PRN ×4 (15:10)
[2022-03-11] MEDS ORDERED: ondansetron/PF 4mg/2ml inj IV PRN ×2 (15:10)
[2022-03-11] MEDS ORDERED: acetaminophen 325mg tablet PO PRN ×3 (15:10)
[2022-03-11] MEDS ORDERED: morphine 4 MG/ML inj SYRINge IV PRN ×2 (15:10)
--- NOTE | 2022-03-11 15:46 | NUR ---
Patient's , Karen, called; given update.
[2022-03-11] MEDS ORDERED: CLOP75TA34 PO (16:06)
--- NOTE | 2022-03-11 16:24 | NUR ---
Report called to LOIDA Rhodes in CICU.
[2022-03-11 17:00] VITALS: BP 127/72
[2022-03-11] MEDS ORDERED: dextrose 50%-water 50ml dispensing syringe IV PRN ×3 (17:05→17:20)
[2022-03-11] MEDS ORDERED: MESSAGE TO PHARMACY PO ONE (17:05)
[2022-03-11] MEDS ORDERED: insulin Lispro (HumaLOG) vial - multi-dose SQ SCH ×3 (17:05→21:10)
[2022-03-11] MEDS ORDERED: DEXTROSE 15 GM of carb/4 tabs (each vial/BOTTLE has 4 tablets) PO PRN ×2 (17:05)
[2022-03-11] MEDS ORDERED: glucagon, human recombinant 1mg kit SUBCUT PRN (17:05)
[2022-03-11 17:06] LABS: ALBUMIN 3.4 G/DL (3.4-5.0); ANION GAP 23 (8-16); BLOOD UREA NITROGEN 85 MG/DL (7-18); BUN/CREATININE RATIO 18.3 (5.4-32.0); CALCIUM 9.7 MG/DL (8.5-10.1); CHLORIDE 102 MMOL/L (99-107); CREATININE 4.64 MG/DL (0.60-1.10); SODIUM 132 MMOL/L (135-145); eGFR 12 ML/MIN
[2022-03-11 17:14] LABS: GLUCOSE 484 MG/DL (70-104)
[2022-03-11 17:15] LABS: POTASSIUM 6.9 MMOL/L (3.5-5.1); TOTAL CARBON DIOXIDE 6.9 MMOL/L (24-32)
[2022-03-11] MEDS ORDERED: sodium bicarb (8.4%) ped inj. 50 MEQ in normal saline 100ml IV soln 100 ML IV ONE (17:20)
[2022-03-11] MEDS ORDERED: Insulin Reg/NS 100units/100mL 100 ML IV SCH (17:20)
[2022-03-11] MEDS ORDERED: sodium bicarbonate (8.4%) 1 mEq/ml syringe ONE ×2 (17:27→19:00)
[2022-03-11 17:41] LABS: ABG BASE EXCESS -15.4 mmol/L (-2.0-2.0); ABG HCO3 10.7 mmol/L (22.0-26.0); ABG OXYGEN SATURATION 95.7 % (94-97); ABG PCO2 (T) 25.8 mmHg (35.0-48.0); ABG PO2 (T) 74.2 mmHg (75.0-100.0); ALLEN'S TEST POSITIVE; FCOHb 0.3 % (0.0-3.9); FLOW 0 L/min; FMetHb 0.3 % (0.0-1.5); FO2Hb 95.1 % (94-97); TOTAL HEMOGLOBIN 14.7 G/dl (14.0-18.0)
[2022-03-11] MEDS ORDERED: PED IV ONE (17:44)
[2022-03-11] MEDS ORDERED: SODIUM BICARB IV ONE (17:44)
[2022-03-11] MEDS ORDERED: NORMAL SALINE IV ONE (17:44)
[2022-03-11 18:12] LABS: PHOSPHORUS 7.1 MG/DL (2.3-4.5)
--- NOTE | 2022-03-11 18:18 | NUR ---
Assumed care of patient at 1700, bgl 369, alert oriented, no wounds, PIV x 2. proceeded to start insuling gtt after 10 units IV, MD at bedside to place central line, then labs then pacer, currently pacer pads in place.
--- NOTE | 2022-03-11 18:20 | NUR ---
Problems reprioritized. Patient report given, questions answered & plan of care reviewed with Carri.
[2022-03-11 19:00] VITALS: BP 138/69
[2022-03-11] MEDS ORDERED: LIDOcaine 1%/PF 5ML 10 MG/ML VIAL SQ ONE (19:05)
[2022-03-11] MEDS: heparin, porcine 5000 units/ml vial SQ SCH (20:00)
[2022-03-11 20:46] LABS: HEMOGLOBIN A1C 6.2 % (4.5-6.2)
[2022-03-11 20:49] LABS: ALANINE AMINOTRANSFERASE 37 U/L (12-78); ALBUMIN 3.5 G/DL (3.4-5.0); ALBUMIN/GLOBULIN RATIO 0.7 (1.1-1.5); ALKALINE PHOSPHATASE 97 IU/L (46-116); AMYLASE 457 U/L (25-115); ANION GAP 17 (8-16); ASPARTATE AMINO TRANSFERASE 26 U/L (10-37); BLOOD UREA NITROGEN 81 MG/DL (7-18); BUN/CREATININE RATIO 20.2 (5.4-32.0); CALCIUM 10.4 MG/DL (8.5-10.1); CHLORIDE 105 MMOL/L (99-107); CREATININE 4.01 MG/DL (0.60-1.10); GLUCOSE 237 MG/DL (70-104); POTASSIUM 5.2 MMOL/L (3.5-5.1); SODIUM 136 MMOL/L (135-145); TOTAL PROTEIN 8.5 G/DL (6.4-8.2); eGFR 15 ML/MIN
[2022-03-11 20:55] LABS: TOTAL CARBON DIOXIDE 14.2 MMOL/L (24-32)
[2022-03-11 21:00] VITALS: BP 115/60
[2022-03-11] MEDS: SODIUM ZIRCONIUM CYCLOSILICATE 10 GM POWD.PACK PO SCH ×2 (21:00→21:58)
[2022-03-11] MEDS ORDERED: insulin glargine (Lantus) pen - multi-dose SQ SCH (21:00)
[2022-03-11 21:12] LABS: LIPASE 4566 U/L (73-393)
[2022-03-11 22:00] VITALS: BP 125/65
[2022-03-11] MEDS: levoFLOXACIN-Levaquin 250mg/D5 50 ML IV SCH (22:14)
[2022-03-11 23:00] VITALS: BP 110/68
[2022-03-11] MEDS: acetaminophen 325mg tablet PO PRN (23:07)
[2022-03-11] MEDS: pantoprazole 40MG/NS 100ML BAG 100 ML IV SCH (23:17)
[2022-03-12] VITALS (22 sets, daily range): BP systolic 98–154; BP diastolic 52–67
[2022-03-12] MEDS: normal saline 1000ml 1,000 ML IV SCH ×3 (01:10→21:10)
[2022-03-12 02:32] LABS: ALBUMIN 3.1 G/DL (3.4-5.0); ANION GAP 11 (8-16); BLOOD UREA NITROGEN 76 MG/DL (7-18); CALCIUM 9.5 MG/DL (8.5-10.1); CHLORIDE 105 MMOL/L (99-107); CREATININE 3.17 MG/DL (0.60-1.10); GLUCOSE 191 MG/DL (70-104); MAGNESIUM 1.3 MG/DL (1.5-2.4); PHOSPHORUS 4.7 MG/DL (2.3-4.5); POTASSIUM 5.3 MMOL/L (3.5-5.1); SODIUM 133 MMOL/L (135-145); TOTAL CARBON DIOXIDE 16.7 MMOL/L (24-32); eGFR 19 ML/MIN
[2022-03-12] MEDS ORDERED: magnesium 2GM in 50ml NS 50 ML IV ONE (04:45)
[2022-03-12 05:49] LABS: LIPASE 10270 U/L (73-393)
[2022-03-12 08:15] LABS: BASOPHILS % (AUTO) 0.3 % (0-1); EOSINOPHILS % (AUTO) 0.1 % (0-6); HEMATOCRIT 35.8 % (42.0-52.0); HEMOGLOBIN 12.2 g/dl (14.0-17.9); LYMPHOCYTES # (AUTO) 1.5 X10'3 (1.1-4.8); LYMPHOCYTES % (AUTO) 12.4 % (21-51); MEAN CORPUSCULAR HEMOGLOBIN 32.2 PG (27.0-31.0); MEAN CORPUSCULAR VOLUME 94.7 FL (78-98); MEAN PLATELET VOLUME 7.6 FL (7.4-10.4); MONOCYTES # (AUTO) 0.9 X10'3 (0-0.9); MONOCYTES % (AUTO) 7.3 % (2-12); NEUTROPHILS # (AUTO) 9.7 X10'3 (1.8-7.7); NEUTROPHILS % (AUTO) 79.9 % (42-75); PLATELET COUNT 207 X10'3 (140-440); RED BLOOD COUNT 3.78 X10'6 (4.70-6.10); RED CELL DISTRIBUTION WIDTH 14.8 % (11.5-14.5); WHITE BLOOD COUNT 12.2 X10'3 (4.5-11.0)
[2022-03-12 08:25] LABS: ALBUMIN 2.8 G/DL (3.4-5.0); ANION GAP 13 (8-16); BLOOD UREA NITROGEN 66 MG/DL (7-18); BUN/CREATININE RATIO 26.5 (5.4-32.0); CALCIUM 9.3 MG/DL (8.5-10.1); CHLORIDE 106 MMOL/L (99-107); CREATININE 2.49 MG/DL (0.60-1.10); GLUCOSE 164 MG/DL (70-104); MAGNESIUM 1.8 MG/DL (1.5-2.4); PHOSPHORUS 4.9 MG/DL (2.3-4.5); POTASSIUM 5.1 MMOL/L (3.5-5.1); SODIUM 139 MMOL/L (135-145); TOTAL CARBON DIOXIDE 19.7 MMOL/L (24-32); eGFR 26 ML/MIN
[2022-03-12] MEDS: heparin, porcine 5000 units/ml vial SQ SCH ×2 (08:57→20:28)
[2022-03-12] MEDS: pantoprazole 40MG/NS 100ML BAG 100 ML IV SCH (08:57)
[2022-03-12] MEDS: SODIUM ZIRCONIUM CYCLOSILICATE 10 GM POWD.PACK PO SCH ×3 (08:57→21:05)
[2022-03-12] MEDS: sodium bicarbonate (8.4%) inj. 150 MEQ in dextrose 5%-water 1,000 ML IV SCH (10:40)
[2022-03-12] MEDS: DOPamine 400mg/D5W 250ml 250 ML IV SCH (14:41)
[2022-03-12 15:00] LABS: ALBUMIN 2.7 G/DL (3.4-5.0); ANION GAP 9 (8-16); BLOOD UREA NITROGEN 50 MG/DL (7-18); CALCIUM 8.6 MG/DL (8.5-10.1); CHLORIDE 107 MMOL/L (99-107); CREATININE 2.08 MG/DL (0.60-1.10); GLUCOSE 190 MG/DL (70-104); MAGNESIUM 1.7 MG/DL (1.5-2.4); PHOSPHORUS 3.6 MG/DL (2.3-4.5); POTASSIUM 4.6 MMOL/L (3.5-5.1); SODIUM 137 MMOL/L (135-145); TOTAL CARBON DIOXIDE 21.5 MMOL/L (24-32); eGFR 31 ML/MIN
[2022-03-12] MEDS ORDERED: metoprolol tartrate 50mg tablet PO SCH (20:00)
[2022-03-12] MEDS: ROPINIRole 0.25mg tablet PO SCH (20:28)
[2022-03-12] MEDS: sodium bicarbonate 650mg tablet PO SCH (20:28)
[2022-03-12] MEDS: atorvastatin 20mg tablet PO SCH (20:30)
[2022-03-12 21:57] LABS: ALBUMIN 2.6 G/DL (3.4-5.0); ANION GAP 10 (8-16); BLOOD UREA NITROGEN 48 MG/DL (7-18); BUN/CREATININE RATIO 25.7 (5.4-32.0); CALCIUM 8.8 MG/DL (8.5-10.1); CHLORIDE 109 MMOL/L (99-107); CREATININE 1.87 MG/DL (0.60-1.10); GLUCOSE 139 MG/DL (70-104); MAGNESIUM 1.7 MG/DL (1.5-2.4); PHOSPHORUS 2.9 MG/DL (2.3-4.5); POTASSIUM 4.4 MMOL/L (3.5-5.1); SODIUM 142 MMOL/L (135-145); TOTAL CARBON DIOXIDE 23.2 MMOL/L (24-32); eGFR 36 ML/MIN
[2022-03-13] VITALS (19 sets, daily range): BP systolic 90–148; BP diastolic 47–84
[2022-03-13 03:18] LABS: BASOPHILS % (AUTO) 0.5 % (0-1); EOSINOPHILS # (AUTO) 0.1 X10'3 (0-0.9); HEMATOCRIT 32.5 % (42.0-52.0); LYMPHOCYTES # (AUTO) 1.6 X10'3 (1.1-4.8); LYMPHOCYTES % (AUTO) 19.5 % (21-51); MEAN CORPUSCULAR HEMOGLOBIN 31.9 PG (27.0-31.0); MEAN CORPUSCULAR HGB CONC 33.7 g/dL (33.0-36.5); MEAN CORPUSCULAR VOLUME 94.6 FL (78-98); MEAN PLATELET VOLUME 7.8 FL (7.4-10.4); MONOCYTES # (AUTO) 0.6 X10'3 (0-0.9); NEUTROPHILS # (AUTO) 5.9 X10'3 (1.8-7.7); PLATELET COUNT 168 X10'3 (140-440); RED BLOOD COUNT 3.43 X10'6 (4.70-6.10); WHITE BLOOD COUNT 8.2 X10'3 (4.5-11.0)
[2022-03-13 03:22] LABS: ALBUMIN 2.6 G/DL (3.4-5.0); ANION GAP 8 (8-16); BLOOD UREA NITROGEN 43 MG/DL (7-18); CALCIUM 8.3 MG/DL (8.5-10.1); CHLORIDE 110 MMOL/L (99-107); CREATININE 1.59 MG/DL (0.60-1.10); GLUCOSE 115 MG/DL (70-104); LIPASE 1018 U/L (73-393); MAGNESIUM 1.5 MG/DL (1.5-2.4); PHOSPHORUS 3.1 MG/DL (2.3-4.5); POTASSIUM 4.4 MMOL/L (3.5-5.1); SODIUM 142 MMOL/L (135-145); TOTAL CARBON DIOXIDE 23.7 MMOL/L (24-32); eGFR 43 ML/MIN
[2022-03-13] MEDS: normal saline 1000ml 1,000 ML IV SCH ×2 (07:10→20:14)
[2022-03-13] MEDS ORDERED: levoFLOXACIN-Levaquin 250mg/D5 50 ML IV SCH ×2 (08:00→15:00)
[2022-03-13] MEDS: amLODIPine 5mg tablet PO SCH (08:00)
[2022-03-13] MEDS: aspirin 81mg, enteric-coated 1 TAB TABLET.DR PO SCH (08:24)
[2022-03-13] MEDS: clopidogrel 75mg tablet PO SCH (08:24)
[2022-03-13] MEDS: SODIUM ZIRCONIUM CYCLOSILICATE 10 GM POWD.PACK PO SCH ×2 (08:24→13:13)
[2022-03-13] MEDS: pantoprazole 40MG/NS 100ML BAG 100 ML IV SCH (08:25)
[2022-03-13] MEDS: levoFLOXACIN-Levaquin 250mg/D5 50 ML IV SCH (08:25)
[2022-03-13] MEDS: sodium bicarbonate 650mg tablet PO SCH ×2 (08:29→21:38)
[2022-03-13] MEDS: heparin, porcine 5000 units/ml vial SQ SCH ×2 (08:30→20:22)
--- NOTE | 2022-03-13 17:00 | NUR ---
Received report from Maurilio from ICU. Patient will be transferred to the floor shortly.
--- NOTE | 2022-03-13 17:33 | NUR ---
Report called to receiving RN and all questions/concerns answered prior to transfer. All pt belongings accounted for prior to transfer.
--- NOTE | 2022-03-13 18:47 | NUR ---
Problems reprioritized. Patient report given, questions answered & plan of care reviewed with LOIDA Aldridge.
--- NOTE | 2022-03-13 19:03 | NUR ---
Patient in room ORTHO 4017. I have received report from MIROSLAVA MARISCAL and had the opportunity to ask questions and assume patient care.
[2022-03-13] MEDS: atorvastatin 20mg tablet PO SCH (20:21)
[2022-03-13] MEDS: ROPINIRole 0.25mg tablet PO SCH (20:21)
[2022-03-14 02:00] VITALS: BP 131/75
[2022-03-14] MEDS: normal saline 1000ml 1,000 ML IV SCH ×2 (03:43→13:10)
[2022-03-14 06:00] VITALS: BP 138/92
--- NOTE | 2022-03-14 06:28 | NUR ---
Patient in room ORTHO 4017. I have received report from LOIDA Aldridge and had the opportunity to ask questions and assume patient care.
--- NOTE | 2022-03-14 06:42 | NUR ---
Problems reprioritized. Patient report given, questions answered & plan of care reviewed with MIROSLAVA MARISCAL.
[2022-03-14] MEDS: K and/or MAG REPLACEMENT MC SCH (08:00)
[2022-03-14] MEDS: clopidogrel 75mg tablet PO SCH (09:17)
[2022-03-14] MEDS: aspirin 81mg, enteric-coated 1 TAB TABLET.DR PO SCH (09:17)
[2022-03-14] MEDS: heparin, porcine 5000 units/ml vial SQ SCH ×2 (09:26→20:17)
[2022-03-14] MEDS: sodium bicarbonate 650mg tablet PO SCH ×2 (09:27→20:13)
[2022-03-14] MEDS: pantoprazole 40MG/NS 100ML BAG 100 ML IV SCH (09:27)
[2022-03-14] MEDS: amLODIPine 5mg tablet PO SCH (09:28)
[2022-03-14 10:00] VITALS: BP 130/77
[2022-03-14 14:00] VITALS: BP 131/74
[2022-03-14] MEDS ORDERED: levoFLOXACIN-Levaquin 250mg/D5 50 ML IV SCH (15:00)
[2022-03-14 18:00] VITALS: BP 131/79
--- NOTE | 2022-03-14 18:27 | NUR ---
Problems reprioritized. Patient report given, questions answered & plan of care reviewed with LOIDA Aldridge.
--- NOTE | 2022-03-14 18:49 | NUR ---
Patient in room ORTHO 4017. I have received report from MIROSLAVA MARISCAL and had the opportunity to ask questions and assume patient care.
[2022-03-14] MEDS: ROPINIRole 0.25mg tablet PO SCH (20:17)
[2022-03-14] MEDS: atorvastatin 20mg tablet PO SCH (20:17)
[2022-03-14] MEDS: acetaminophen 325mg tablet PO PRN (20:21)
[2022-03-14 22:00] VITALS: BP 140/80
[2022-03-15] MEDS: normal saline 1000ml 1,000 ML IV SCH ×2 (00:56→09:10)
[2022-03-15 06:00] VITALS: BP 154/84
[2022-03-15 06:17] LABS: ALANINE AMINOTRANSFERASE 21 U/L (12-78); ALBUMIN 2.4 G/DL (3.4-5.0); ALBUMIN/GLOBULIN RATIO 0.6 (1.1-1.5); ALKALINE PHOSPHATASE 56 IU/L (46-116); ANION GAP 9 (8-16); ASPARTATE AMINO TRANSFERASE 21 U/L (10-37); BILIRUBIN,TOTAL 0.9 MG/DL (0.1-1.0); BLOOD UREA NITROGEN 22 MG/DL (7-18); BUN/CREATININE RATIO 19.5 (5.4-32.0); CALCIUM 7.6 MG/DL (8.5-10.1); CHLORIDE 107 MMOL/L (99-107); CREATININE 1.13 MG/DL (0.60-1.10); GLUCOSE 100 MG/DL (70-104); POTASSIUM 4.1 MMOL/L (3.5-5.1); SODIUM 140 MMOL/L (135-145); TOTAL CARBON DIOXIDE 24.3 MMOL/L (24-32); TOTAL PROTEIN 6.2 G/DL (6.4-8.2); eGFR 64 ML/MIN
[2022-03-15 06:23] LABS: BASOPHILS % (AUTO) 0.4 % (0-1); EOSINOPHILS # (AUTO) 0.4 X10'3 (0-0.9); EOSINOPHILS % (AUTO) 5.6 % (0-6); HEMATOCRIT 31.1 % (42.0-52.0); HEMOGLOBIN 10.6 g/dl (14.0-17.9); LYMPHOCYTES # (AUTO) 1.7 X10'3 (1.1-4.8); LYMPHOCYTES % (AUTO) 24.4 % (21-51); MEAN CORPUSCULAR HEMOGLOBIN 32.8 PG (27.0-31.0); MEAN CORPUSCULAR HGB CONC 34.2 g/dL (33.0-36.5); MEAN CORPUSCULAR VOLUME 95.8 FL (78-98); MEAN PLATELET VOLUME 7.8 FL (7.4-10.4); MONOCYTES # (AUTO) 0.5 X10'3 (0-0.9); MONOCYTES % (AUTO) 7.1 % (2-12); NEUTROPHILS # (AUTO) 4.3 X10'3 (1.8-7.7); NEUTROPHILS % (AUTO) 62.5 % (42-75); PLATELET COUNT 157 X10'3 (140-440); RED BLOOD COUNT 3.24 X10'6 (4.70-6.10); RED CELL DISTRIBUTION WIDTH 14.9 % (11.5-14.5); WHITE BLOOD COUNT 6.9 X10'3 (4.5-11.0)
--- NOTE | 2022-03-15 06:31 | NUR ---
Problems reprioritized. Patient report given, questions answered & plan of care reviewed with ELSY MARISCAL.
--- NOTE | 2022-03-15 07:20 | NUR ---
Patient in room ORTHO 4017. I have received report from KINA RN, RN and had the opportunity to ask questions and assume patient care.
[2022-03-15] MEDS ORDERED: pantoprazole 40mg Tablet.DR PO SCH (07:30)
[2022-03-15] MEDS: K and/or MAG REPLACEMENT MC SCH (08:00)
--- NOTE | 2022-03-15 08:16 | NUR ---
Initial: Pt admitted w/ PETERSON w/ CKD, pancreatitis, and acidosis per EMR. Currently on Renal diet w/ mostly 100% intake of meals meeting minimum nutrient needs at this time. Recommend liberalizing to Regular diet as Renal diet not indicated w/ PETERSON and electrolytes WNL. LBM 03/14. Will continue to monitor and make recommendations as appropriate. Recs; 1. Liberalize to Regular diet 2. Bowel care per rx 3. Weekly wts Addendum: 03/15/22 at [address] Amended: Links added.
[2022-03-15] MEDS: aspirin 81mg, enteric-coated 1 TAB TABLET.DR PO SCH (09:38)
[2022-03-15] MEDS: clopidogrel 75mg tablet PO SCH (09:38)
[2022-03-15] MEDS: sodium bicarbonate 650mg tablet PO SCH (09:38)
[2022-03-15] MEDS: heparin, porcine 5000 units/ml vial SQ SCH (09:39)
[2022-03-15] MEDS: amLODIPine 5mg tablet PO SCH (09:40)
[2022-03-15 10:00] VITALS: BP 144/74
[2022-03-15] MEDS ORDERED: LEVO500T90 PO (10:12)
[2022-03-15] MEDS ORDERED: LACT1CAP26 PO (10:12)
[2022-03-15] MEDS ORDERED: PANT40TA54 PO (10:12)
[2022-03-15] MEDS ORDERED: SODI650T29 PO (10:14)
[2022-03-15] MEDS ORDERED: levoFLOXACIN 250mg tablet PO SCH (15:00)
--- NOTE | 2022-03-15 15:00 | NUR ---
PATIENT STABLE AND APPROPRIATE FOR DISCHARGE, PICC LINE TAKEN OUT, EDUCATION GIVEN, NEW MEDS E-SCRIPTED TO PREFERRED PHARMACY, ALL BELONGINGS SENT WITH PATIENT, PATIENT TAKEN TO LOBBY BY WHEELCHAIR TO AN AWAITING CAR WHERE PATIENT'S FAMILY WILL TAKE PATIENT HOME
== END 2022-03-15 15:00 | disposition home health service (06) | DRG 871 ==
LOC: ER 09:47 → ED HOLD 15:09 → CICU 2S 16:45 → ORTHO 4S 03-13 17:15
PROVIDERS: ADMIT Hospitalist; ATTEND Hospitalist
PROC: 05HY33Z Insertion of Infusion Device into Upper Vein, Percutaneous Approach (ICD-10-PCS; principal; 2022-03-12)
DX: A41.9 Sepsis, unspecified organism (principal); K85.90 Acute pancreatitis without necrosis or infection, unspecified; I21.A1 Myocardial infarction type 2; R65.21 Severe sepsis with septic shock; N17.9 Acute kidney failure, unspecified; N39.0 Urinary tract infection, site not specified; E87.2 Acidosis; E46 Unspecified protein-calorie malnutrition; K50.90 Crohn's disease, unspecified, without complications; E87.5 Hyperkalemia; N20.0 Calculus of kidney; M10.9 Gout, unspecified; N18.32 Chronic kidney disease, stage 3b; I45.9 Conduction disorder, unspecified; I12.9 Hypertensive chronic kidney disease with stage 1 through stage 4 chronic kidney disease, or unspecified chronic kidney disease; G25.81 Restless legs syndrome; E86.0 Dehydration; E78.00 Pure hypercholesterolemia, unspecified; K80.20 Calculus of gallbladder without cholecystitis without obstruction; K76.89 Other specified diseases of liver; N28.1 Cyst of kidney, acquired; D63.1 Anemia in chronic kidney disease; I25.10 Atherosclerotic heart disease of native coronary artery without angina pectoris; E78.5 Hyperlipidemia, unspecified; Z95.1 Presence of aortocoronary bypass graft; Z90.49 Acquired absence of other specified parts of digestive tract; Z86.73 Personal history of transient ischemic attack (TIA), and cerebral infarction without residual deficits; Z88.0 Allergy status to penicillin; Z88.4 Allergy status to anesthetic agent; Z95.2 Presence of prosthetic heart valve; Z68.35 Body mass index [BMI] 35.0-35.9, adult; Z79.899 Other long term (current) drug therapy
CPT/HCPCS: 36415; 36573; 36600; 71045; 74176; 76770; 80048; 80053; 81001; 82150; 82803; 82948; 83036; 83605; 83690; 83735; 83880; 84100; 84484; 85018; 85025; 85610; 87040; 87077; 87081; 87088; 87186; 93005; 96361; 96374; 96375; 96376; 97110; 97116; 97161; 97530; 99285; C1751; C9113; G0378; J1265; J1644; J1815; J1956; J2270; J2405; J3475; J3490; J7030; J7070

== ENCOUNTER 2022-03-26 19:44 | Emergency (ER) | payer MEDICARE, OTHER ==
[~2022-03-26] VITALS: Ht 172.7 cm; Wt 104.5 kg
[~2022-03-26 19:44] MED LIST changes: -BACL10TA2 PO; -CLOP75TA15 PO; +CLOP75TA34 PO; -HYDR7GEL; +LACT1CAP26 PO; +LEVO500T90 PO; -LISI40TA13 PO; -METO50TA16 PO; +PANT40TA54 PO; +SODI650T29 PO
[2022-03-27 01:31] VITALS: BP 147/87
== END 2022-03-27 01:33 | disposition home or self-care (01) ==
LOC: ER 19:45
DX: I82.812 Embolism and thrombosis of superficial veins of left lower extremity (principal); M79.605 Pain in left leg; E78.00 Pure hypercholesterolemia, unspecified; M10.9 Gout, unspecified; I12.9 Hypertensive chronic kidney disease with stage 1 through stage 4 chronic kidney disease, or unspecified chronic kidney disease; N18.9 Chronic kidney disease, unspecified; Z86.73 Personal history of transient ischemic attack (TIA), and cerebral infarction without residual deficits; Z86.718 Personal history of other venous thrombosis and embolism; Z98.890 Other specified postprocedural states; Z88.0 Allergy status to penicillin; Z88.8 Allergy status to other drugs, medicaments and biological substances; Z79.82 Long term (current) use of aspirin; Z79.2 Long term (current) use of antibiotics; Z79.899 Other long term (current) drug therapy
CPT/HCPCS: 93971; 99284

== ENCOUNTER 2022-09-20 12:45 | Emergency (ER) | payer MEDICARE, OTHER ==
[~2022-09-20] VITALS: Ht 172.7 cm; Wt 100.9 kg
[~2022-09-20 12:45] MED LIST changes: -LEVO500T90 PO
[2022-09-20 12:59] VITALS: BP 168/104
== END 2022-09-20 15:25 | disposition home or self-care (01) ==
LOC: ER 12:46
DX: S09.90XA Unspecified injury of head, initial encounter (principal); E78.00 Pure hypercholesterolemia, unspecified; N17.9 Acute kidney failure, unspecified; I12.0 Hypertensive chronic kidney disease with stage 5 chronic kidney disease or end stage renal disease; N18.9 Chronic kidney disease, unspecified; Z88.0 Allergy status to penicillin; Z88.8 Allergy status to other drugs, medicaments and biological substances; W07.XXXA Fall from chair, initial encounter; Y93.89 Activity, other specified; Y92.89 Other specified places as the place of occurrence of the external cause; Y99.8 Other external cause status
CPT/HCPCS: 70450; 99284

== ENCOUNTER 2022-12-29 04:52 | Inpatient (IN) | payer MEDICARE, OTHER ==
[~2022-12-29] VITALS: Ht 172.7 cm; Wt 100.5 kg
[~2022-12-29 04:52] MED LIST changes: -AMLO10TA13 PO; -ASPI81TA30 PO; +CHOL500050 PO; +DOCO1CAP11 PO; +FURO40TA4 PO; +HYDRALAZINE PO; +IRON; +ISOS30TA84 PO; -LACT1CAP26 PO; +LACT1CAP60 PO; +METO-395 PO; +MULT-1085 PO; -PANT40TA54 PO; +POTA-207 PO; -SODI650T29 PO; +UBID100C45 PO; -VITA1TAB20 PO; +Vitamin B; +Vitamin B Complex SL; +WARF-65 PO
[2022-12-29 05:53] LABS: EOSINOPHILS # (AUTO) 0.1 X10'3 (0-0.9); MEAN PLATELET VOLUME 8.6 FL (7.4-10.4); NEUTROPHILS # (AUTO) 6.7 X10'3 (1.8-7.7)
[2022-12-29 05:55] LABS: BASOPHILS % (AUTO) 0.5 % (0-1); EOSINOPHILS % (AUTO) 1.6 % (0-6); HEMATOCRIT 35.7 % (42.0-52.0); HEMOGLOBIN 11.6 g/dl (14.0-17.9); LYMPHOCYTES # (AUTO) 0.8 X10'3 (1.1-4.8); LYMPHOCYTES % (AUTO) 9.7 % (21-51); MEAN CORPUSCULAR HEMOGLOBIN 30.5 PG (27.0-31.0); MEAN CORPUSCULAR HGB CONC 32.7 g/dL (33.0-36.5); MEAN CORPUSCULAR VOLUME 93.3 FL (78-98); MONOCYTES # (AUTO) 0.7 X10'3 (0-0.9); MONOCYTES % (AUTO) 8.1 % (2-12); NEUTROPHILS % (AUTO) 80.1 % (42-75); PLATELET COUNT 202 X10'3 (140-440); RED BLOOD COUNT 3.82 X10'6 (4.70-6.10); WHITE BLOOD COUNT 8.4 X10'3 (4.5-11.0)
[2022-12-29 06:13] LABS: ALANINE AMINOTRANSFERASE 19 U/L (12-78); ALBUMIN/GLOBULIN RATIO 0.7 (1.1-1.5); ALKALINE PHOSPHATASE 79 IU/L (46-116); ANION GAP 10 (8-16); ASPARTATE AMINO TRANSFERASE 33 U/L (10-37); BILIRUBIN,TOTAL 1.3 MG/DL (0.1-1.0); BLOOD UREA NITROGEN 20 MG/DL (7-18); BUN/CREATININE RATIO 14.5 (5.4-32.0); CALCIUM 8.9 MG/DL (8.5-10.1); CHLORIDE 108 MMOL/L (99-107); CREATININE 1.38 MG/DL (0.60-1.10); GLUCOSE 125 MG/DL (70-104); POTASSIUM 3.9 MMOL/L (3.5-5.1); SODIUM 140 MMOL/L (135-145); TOTAL CARBON DIOXIDE 21.8 MMOL/L (24-32); TOTAL PROTEIN 7.3 G/DL (6.4-8.2); eGFR 50 ML/MIN
--- NOTE | 2022-12-29 08:58 | NUR ---
PICK AT BEDSIDE
[2022-12-29] MEDS ORDERED: nitroGLYCERIN 1gm ointment UD TP ONE (09:15)
[2022-12-29] MEDS ORDERED: ondansetron/PF 4mg/2ml inj IV ONE (09:15)
[2022-12-29] MEDS ORDERED: morphine 4 MG/ML inj SYRINge IV ONE (09:15)
--- NOTE | 2022-12-29 09:18 | NUR ---
INFORMED MD PT IS C/O CP 05/10 , PER DR PATEL VERBAL ORDER FOR ZOFRAN 4 MG IV ONCE,MORPHINE 4 MG IV ONCE AND NITRO BID 1 INCH .
[2022-12-29] MEDS ORDERED: magnesium 4gm in 100ml NS 100 ML IV PRN (11:00)
[2022-12-29] MEDS ORDERED: potassium Cl 20 mEq SR tablet PO PRN ×2 (11:00)
[2022-12-29] MEDS ORDERED: potassium Cl 40MEQ/1/2NS 520ml 520 ML IV PRN (11:00)
[2022-12-29] MEDS ORDERED: acetaminophen 325mg tablet PO PRN (11:00)
[2022-12-29] MEDS ORDERED: magnesium Cl slow-release 64mg tablet PO PRN (11:00)
[2022-12-29] MEDS ORDERED: ondansetron/PF 4mg/2ml inj IV PRN (11:00)
--- NOTE | 2022-12-29 12:34 | NUR ---
DR ENGLISH AT [facility].
[2022-12-29] MEDS: K and/or MAG REPLACEMENT MC SCH (20:00)
[2022-12-29 20:18] VITALS: BP 119/83
[2022-12-29 22:52] LABS: BASOPHILS % (AUTO) 0.5 % (0-1); EOSINOPHILS # (AUTO) 0.2 X10'3 (0-0.9); EOSINOPHILS % (AUTO) 2.2 % (0-6); HEMATOCRIT 37.2 % (42.0-52.0); HEMOGLOBIN 12.1 g/dl (14.0-17.9); LYMPHOCYTES # (AUTO) 1.1 X10'3 (1.1-4.8); LYMPHOCYTES % (AUTO) 13.5 % (21-51); MEAN CORPUSCULAR HEMOGLOBIN 30.5 PG (27.0-31.0); MEAN CORPUSCULAR HGB CONC 32.5 g/dL (33.0-36.5); MEAN CORPUSCULAR VOLUME 93.8 FL (78-98); MEAN PLATELET VOLUME 8.5 FL (7.4-10.4); MONOCYTES # (AUTO) 0.8 X10'3 (0-0.9); MONOCYTES % (AUTO) 9.3 % (2-12); NEUTROPHILS # (AUTO) 6.2 X10'3 (1.8-7.7); NEUTROPHILS % (AUTO) 74.5 % (42-75); PLATELET COUNT 219 X10'3 (140-440); RED BLOOD COUNT 3.97 X10'6 (4.70-6.10); RED CELL DISTRIBUTION WIDTH 17.6 % (11.5-14.5); WHITE BLOOD COUNT 8.3 X10'3 (4.5-11.0)
[2022-12-29] MEDS ORDERED: morphine 2 MG/ML inj. syringe IV ONE (23:50)
[2022-12-30] MEDS ORDERED: morphine 2 MG/ML inj. syringe IV PRN (00:05)
[2022-12-30 02:22] VITALS: BP 109/67
[2022-12-30 05:50] LABS: BASOPHILS % (AUTO) 0.4 % (0-1); EOSINOPHILS # (AUTO) 0.3 X10'3 (0-0.9); EOSINOPHILS % (AUTO) 3.4 % (0-6); HEMATOCRIT 32.7 % (42.0-52.0); HEMOGLOBIN 10.9 g/dl (14.0-17.9); LYMPHOCYTES # (AUTO) 1.3 X10'3 (1.1-4.8); LYMPHOCYTES % (AUTO) 17.9 % (21-51); MEAN CORPUSCULAR HEMOGLOBIN 31.4 PG (27.0-31.0); MEAN CORPUSCULAR HGB CONC 33.3 g/dL (33.0-36.5); MEAN CORPUSCULAR VOLUME 94.2 FL (78-98); MEAN PLATELET VOLUME 8.5 FL (7.4-10.4); MONOCYTES # (AUTO) 0.7 X10'3 (0-0.9); MONOCYTES % (AUTO) 9.6 % (2-12); NEUTROPHILS % (AUTO) 68.7 % (42-75); PLATELET COUNT 192 X10'3 (140-440); RED BLOOD COUNT 3.47 X10'6 (4.70-6.10); RED CELL DISTRIBUTION WIDTH 17.4 % (11.5-14.5); WHITE BLOOD COUNT 7.3 X10'3 (4.5-11.0)
[2022-12-30 05:57] LABS: ALBUMIN 2.6 G/DL (3.4-5.0); ANION GAP 6 (8-16); BLOOD UREA NITROGEN 18 MG/DL (7-18); BUN/CREATININE RATIO 14.3 (5.4-32.0); CALCIUM 8.6 MG/DL (8.5-10.1); CHLORIDE 108 MMOL/L (99-107); CREATININE 1.26 MG/DL (0.60-1.10); GLUCOSE 111 MG/DL (70-104); MAGNESIUM 1.3 MG/DL (1.5-2.4); POTASSIUM 3.9 MMOL/L (3.5-5.1); SODIUM 141 MMOL/L (135-145); TOTAL CARBON DIOXIDE 27.1 MMOL/L (24-32); eGFR 56 ML/MIN
[2022-12-30 06:00] VITALS: BP 108/76
[2022-12-30] MEDS: K and/or MAG REPLACEMENT MC SCH (07:32)
--- NOTE | 2022-12-30 08:30 | NUR ---
WOC note, spoke to primary nurse, patient is independent with ileostomy appliance changes. New pacer site presenting with erythema needs to be addressed with Dr. Rodriguez. WOC will not follow.
[2022-12-30 11:30] VITALS: BP 113/72
--- NOTE | 2022-12-30 14:30 | NUR ---
pt discharged in stable condition to home. iv removed tip intact no complications. belongings sent with pt. pt educated on discharge medications, follow up.
== END 2022-12-30 14:30 | disposition home or self-care (01) | DRG 281 ==
LOC: ER 04:53 → ED HOLD 11:03 → EDBEDREQTM 18:26 → PCU 3S 19:45
PROVIDERS: ADMIT Internal Medicine; ATTEND Internal Medicine
DX: R07.89 Other chest pain (principal); I21.A1 Myocardial infarction type 2; I13.0 Hypertensive heart and chronic kidney disease with heart failure and stage 1 through stage 4 chronic kidney disease, or unspecified chronic kidney disease; I50.22 Chronic systolic (congestive) heart failure; K50.90 Crohn's disease, unspecified, without complications; N17.9 Acute kidney failure, unspecified; E78.00 Pure hypercholesterolemia, unspecified; G25.81 Restless legs syndrome; K21.9 Gastro-esophageal reflux disease without esophagitis; I25.10 Atherosclerotic heart disease of native coronary artery without angina pectoris; M10.9 Gout, unspecified; N18.9 Chronic kidney disease, unspecified; Z86.73 Personal history of transient ischemic attack (TIA), and cerebral infarction without residual deficits; Z93.3 Colostomy status; Z95.0 Presence of cardiac pacemaker; Z95.1 Presence of aortocoronary bypass graft; Z88.0 Allergy status to penicillin; Z88.8 Allergy status to other drugs, medicaments and biological substances; Z86.718 Personal history of other venous thrombosis and embolism; Z79.899 Other long term (current) drug therapy
CPT/HCPCS: 33249; 92928; 92978; 93459; 99285; C9600; 36415; 71045; 80048; 80053; 83735; 83880; 84484; 85025; 85347; 85610; 87081; 93005; 99152; 99153; A6258; A6402; A6449; C1725; C1751; C1753; C1760; C1761; C1769; C1874; C1882; C1892; C1894; C1895; C1898; C1900; G0378; J0282; J1170; J1644; J2250; J2270; J2370; J2405; J3010; J3370; J3490; J7030; J7040; Q9967